=== PATIENT | male | born 1980 | race Hispanic/Latino ===

== ENCOUNTER 2025-03-20 21:20 | Emergency (ER) | payer SELFPAY ==
[2025-03-20] MEDS ORDERED: Norepinephrine 8 MG/0.9% NS 250 ML ONE (21:23)
[2025-03-20] MEDS ORDERED: Etomidate 40 MG (20 mL) VIAL ONE (21:40)
[2025-03-20] MEDS ORDERED: Rocuronium Bromide 10 MG/ML (10ML VIAL) ONE ×2 (21:40→21:43)
[2025-03-20 22:09] LABS: Hematocrit 30.0 % (42.0-52.0); Hemoglobin 10.0 g/dL (14.0-18.0); Mean Corpuscular Hemoglobin 36.2 pg (27.0-31.0); Mean Corpuscular Volume 108.7 fL (78.0-98.0); Platelet Count 70 10x3/uL (130-400); Red Blood Cell (RBC) Count 2.76 mill/uL (4.70-6.10); White Blood Cell (WBC) Count 21.46 10x3/uL (4.8-10.8)
[2025-03-20 22:13] LABS: Prothrombin Time 134.2 sec (12.0-14.7)
[2025-03-20 22:15] LABS: Base Excess (BEa) -24.4 mEq/L (-2.0 to +3.0); Calcium, Ionized (arterial) 1.04 mmol/L (1.12-1.30); Hematocrit-ABG 33 % (42.0-52.0); Hemoglobin (Hb) 11.3 g/dL (14.0-18.0); O2 Tension (PaO2), arterial 265.8 mmHg (80.0-100.0); Potassium - ABG Lab 3.11 mmol/L (3.70-5.30)
[2025-03-20] MEDS ORDERED: Vancomycin 1.5 GM / NS 500ML VIAL-2-BAG IVPB SCH (22:15)
[2025-03-20 22:21] LABS: Bilirubin, Total 31.3 mg/dL (0.3-1.2); Lipase 723 U/L (8-78)
[2025-03-20 22:24] LABS: Acetaminophen Less than 10 mcg/mL (Less than 10); Salicylate Less than 8.0 mg/dL (Less than 8.0)
[2025-03-20 22:25] LABS: ALT (SGPT) 151 U/L (Less than 45); AST (SGOT) 340 U/L (11-34); Albumin 1.7 g/dL (3.1-4.5); Alkaline Phosphatase 167 U/L (40-110); BUN (Urea Nitrogen) 27 mg/dL (8.9-20.6); CK (CPK) 195 U/L (30-200); Calc. Creatinine Clearance 0 mL/min (70-130); Calcium 8.1 mg/dL (7.8-10.44); Carbon Dioxide Less than 8 mmol/L (22-29); Chloride 89 mmol/L (98-107); Globulin 3.2 g/dL (2.4-3.5); Glucose 83 mg/dL (70-105); Magnesium 2.6 mg/dL (1.6-2.6); Potassium 3.6 mmol/L (3.5-5.1); Sodium 123 mmol/L (136-145)
[2025-03-20] MEDS ORDERED: Vasopressin In 0.9 % NaCl 100 ML ONE (22:38)
[2025-03-20 22:41] LABS: INR-International Normal Ratio 19.3
[2025-03-20 22:42] LABS: PTT Greater than 250.0 sec (22.9-36.1)
[2025-03-20 22:46] LABS: Macrocytosis SLIGHT = 6-15 cells HPF (0-5); Platelet Adequacy Comment Platelets Decreased; Smudge Cells 15.4 %
[2025-03-21] MEDS ORDERED: Ventilator Sedation Protocol 1 EACH FS ONE (00:13)
[2025-03-21] MEDS ORDERED: Sodium Bicarb 50 MEQ/50 ML Abboject 8.4% SYRINGE ONE (00:17)
[2025-03-21 00:18] LABS: RBC Count-Automated (BF) 1051 /cu.mm; WBC/Nucleated-Auto (BF) 216 /cu.mm
[2025-03-21] MEDS ORDERED: Fentanyl BOLUS 100 ML IVPB PRN (00:30)
[2025-03-21] MEDS ORDERED: Propofol BOLUS 1,000 MG/100 ML VIAL IV PRN (00:30)
[2025-03-21] MEDS ORDERED: DISCONTINUE PREVIOUS NARCOTIC PAIN MEDICATIONS AND BENZODIAZEPINES FS SCH (00:30)
[2025-03-21 01:26] LABS: BF Segmented Neutrophils 2 %; Cell Count Non Hematic 75 %
[2025-03-21] MEDS ORDERED: Norepinephrine 8 MG/0.9% NS 250 ML ONE (01:42)
[2025-03-21] MEDS ORDERED: Vasopressin In 0.9 % NaCl 100 ML ONE (02:46)
[2025-03-23 07:23] LABS: pH, Arterial 7.036 (7.35-7.45)
[2025-03-23 07:24] LABS: Actual Bicarbonate (HCO3a) 4.5 mEq/L (22-28); CO2 Tension 17.3 mmHg (35.0-45.0)
== END 2025-03-21 03:17 | disposition short-term general hospital (02) ==
LOC: ERS 21:20
DX: A41.9 Sepsis, unspecified organism (principal); R65.21 Severe sepsis with septic shock; K72.00 Acute and subacute hepatic failure without coma; J96.00 Acute respiratory failure, unspecified whether with hypoxia or hypercapnia; E87.20 Acidosis, unspecified; I10 Essential (primary) hypertension; E11.9 Type 2 diabetes mellitus without complications; Z79.899 Other long term (current) drug therapy
CPT/HCPCS: 31500; 36416; 36430; 36556; 49083; 51702; 70450; 71045; 71250; 72125; 74177; 80053; 80307; 82140; 82248; 82550; 82805; 83605; 83690; 83735; 83880; 84100; 84484; 85025; 85060; 85610; 85730; 86850; 86900; 86901; 87040; 87070; 87205; 89051; 93005; 94002; 94760; 96365; 96366; 96367; 96368; 99292; J2543; J2704; J7030; J7070; P9016; P9059